=== PATIENT | female | born 1990 | race Caucasian/White ===

== ENCOUNTER 2017-12-02 01:05 | Emergency (ER) | payer MEDICAID | END 2017-12-02 01:41 | disposition home or self-care (01) | LOC: EDH 01:05 | DX: O26.893 Other specified pregnancy related conditions, third trimester (principal); H10.31 Unspecified acute conjunctivitis, right eye; F98.8 Other specified behavioral and emotional disorders with onset usually occurring in childhood and adolescence; F43.10 Post-traumatic stress disorder, unspecified; Z3A.32 32 weeks gestation of pregnancy; Z88.8 Allergy status to other drugs, medicaments and biological substances; Z72.0 Tobacco use ==

== ENCOUNTER 2017-12-07 11:13 | Emergency (ER) | payer MEDICAID | END 2017-12-07 12:27 | disposition home or self-care (01) | LOC: EDH 11:13 | DX: H10.33 Unspecified acute conjunctivitis, bilateral (principal); F31.9 Bipolar disorder, unspecified; F43.10 Post-traumatic stress disorder, unspecified; Z88.6 Allergy status to analgesic agent; Z90.49 Acquired absence of other specified parts of digestive tract; Z72.0 Tobacco use ==